=== PATIENT | female | born 1980 | race Caucasian/White ===

== ENCOUNTER 2017-04-09 21:03 | Emergency (ER) | payer OTHER ==
[~2017-04-09] VITALS: Ht 180.3 cm; Wt 113.4 kg
[2017-04-09] MEDS ORDERED: LISINOPRIL20 MG PO (21:14)
[2017-04-09] MEDS ORDERED: PROZAC10 MG PO (21:14)
[2017-04-09 21:22] VITALS: BP 150/86
[2017-04-09] MEDS ORDERED: NORFLEX100 MG PO (21:23)
[2017-04-09] MEDS ORDERED: PREDNISONE 10 M10 MG PO (21:23)
== END 2017-04-09 21:38 | disposition home or self-care (01) ==
LOC: ER 21:03
DX: S46.811A Strain of other muscles, fascia and tendons at shoulder and upper arm level, right arm, initial encounter (principal); M54.12 Radiculopathy, cervical region; X58.XXXA Exposure to other specified factors, initial encounter; Y93.89 Activity, other specified; Y92.89 Other specified places as the place of occurrence of the external cause; Y99.8 Other external cause status

== ENCOUNTER 2018-07-21 17:21 | Emergency (ER) | payer OTHER ==
[~2018-07-21] VITALS: Ht 175.3 cm; Wt 136.1 kg
[~2018-07-21 17:21] MED LIST: LISINOPRIL20 MG PO; NORFLEX100 MG PO; PREDNISONE 10 M10 MG PO; PROZAC10 MG PO
[2018-07-21 17:52] LABS: URINE BILIRUBIN NEGATIVE (Negative); URINE BLOOD 1+ (Negative); URINE CLARITY CLEAR; URINE COLOR YELLOW; URINE GLUCOSE-RANDOM* NEGATIVE (Negative); URINE KETONES NEGATIVE (Negative); URINE LEUKOCYTES NEGATIVE (Negative); URINE NITRITE NEGATIVE (Negative); URINE PROTEIN (DIPSTICK) TRACE (Negative); URINE SPECIFIC GRAVITY <= 1.005 (1.005-1.035); URINE UROBILINOGEN 0.2 E.U./dl (0.2-1.0)
[2018-07-21] MEDS ORDERED: MOBIC15 MG PO (17:52)
[2018-07-21] MEDS ORDERED: GLUCOPHAGE XR500 MG PO (17:52)
[2018-07-21] MEDS ORDERED: FLONASE 0.05%50 MCG NASAL (17:53)
[2018-07-21 17:56] LABS: ABSOLUTE NEUTROPHILS 7.7 thou/uL (1.4-8.2); BASOPHILS 0.4 % (0.0-2.0); EOSINOPHILS 0.9 % (0.0-3.0); HEMATOCRIT 40.7 % (37.0-47.0); HEMOGLOBIN 13.8 gm/dL (12.0-15.0); LYMPHOCYTES 22.5 % (24.0-44.0); MCH 29.7 pg (26.0-34.0); MCHC 33.9 g/dL (28.0-37.0); MCV 87.7 fL (80.0-100.0); MONOCYTES 4.8 % (1.0-8.0); PLATELET COUNT 193 thou/uL (150-400); POLYS 71.4 % (36.0-66.0); RBC 4.64 mil/uL (4.20-5.00); RDW 13.5 % (10.5-14.5); WBC 10.8 thou/uL (4.0-11.0)
[2018-07-21 18:03] LABS: CALCIUM 9.8 mg/dL (8.5-10.1); CREATININE 0.6 mg/dL (0.6-1.0); POTASSIUM 3.8 mmol/L (3.5-5.1)
[2018-07-21 18:09] LABS: BACTERIA None Seen /HPF (None Seen); CASTS None Seen /LPF (None Seen); CRYSTALS None Seen /LPF (None Seen); SQUAMOUS 0-3 Few /LPF (0-3); URINE RBC 0-2 Rare /HPF (0-2); URINE WBC None Seen /HPF (0-5)
[2018-07-21 18:10] LABS: ALBUMIN 3.2 g/dL (3.4-5.0); TOTAL BILIRUBIN 0.2 mg/dL (<0.1-1.0); TOTAL PROTEIN 7.4 g/dL (6.4-8.2)
[2018-07-21 18:41] LABS: MAGNESIUM 1.7 mg/dL (1.8-2.4); TROPONIN-I <0.06 ng/mL (<0.06)
[2018-07-21] MEDS ORDERED: NORCO 5-325 TA1 EACH PO (19:47)
[2018-07-21 20:13] VITALS: BP 149/77
--- NOTE | 2018-07-22 08:36 | EKG ---
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: [place] : 1980 Requested By: Larry Mayorga Order Number: [id number] MD: Brian Gomez Measurements Intervals [place] Rate: 82 P: 50 [place]: 180 QRS: 7 QRSD: 101 T: 30 QT: 390 QTc: 456 Interpretive Statements Sinus rhythm Normal tracing No previous ECG available for comparison Electronically Signed On 07-22-2018 8:36:26 RN STAFFING by Brian Gomez [email or web address] ��������������������������������������������� <ELECTRONICALLY SIGNED> ���������������������������������������� By: Brian Gomez MD, [facility] ��������������������������������������������� 07/22/18 0836 1742 1742 Brian Gomez MD, FACC /EPI
== END 2018-07-21 20:14 | disposition home or self-care (01) ==
LOC: ER 17:21
PROVIDERS: Physician Assistant
DX: R07.89 Other chest pain (principal); M25.511 Pain in right shoulder; M62.838 Other muscle spasm; F32.9 Major depressive disorder, single episode, unspecified; I10 Essential (primary) hypertension; Z98.890 Other specified postprocedural states

== ENCOUNTER 2019-01-08 15:21 | Emergency (ER) | payer OTHER ==
[~2019-01-08] VITALS: Ht 175.3 cm; Wt 122.5 kg
[~2019-01-08 15:21] MED LIST changes: +FLONASE 0.05%50 MCG NASAL; +GLUCOPHAGE XR500 MG PO; +MOBIC15 MG PO; +NORCO 5-325 TA1 EACH PO
[2019-01-08] MEDS ORDERED: OMEPRAZOLE20 M3 PO (15:32)
[2019-01-08] MEDS ORDERED: CEPACOL SORE T1 EAC7 BUCCAL (17:00)
[2019-01-08] MEDS ORDERED: AMOXICILLIN 50500 MG PO (17:00)
[2019-01-08 17:07] VITALS: BP 152/83
== END 2019-01-08 17:05 | disposition home or self-care (01) ==
LOC: ER 15:21
DX: J02.9 Acute pharyngitis, unspecified (principal); I10 Essential (primary) hypertension; F32.9 Major depressive disorder, single episode, unspecified; Z98.890 Other specified postprocedural states